=== PATIENT | female | born 2000 | race Caucasian/White ===

== ENCOUNTER → 2021-11-07 14:05 | Outpatient (CLI) | payer OTHER, SELFPAY ==
--- NOTE | ~2021-11-07 | XR_ITS ---
EXAM: XR foot RT min 3V, XR ankle RT min 3V HISTORY: S99.911A - Unspecified injury of right ankle, initial enc... COMPARISON: None available FINDINGS: Normal mineralization. No fracture or dislocation. No lytic or blastic lesion. Joint space s maintained. No erosion or periosteal change. Small volume joint fluid. Soft tissues within normal l imits. IMPRESSION: No acute osseous finding in the right ankle or foot. Small right ankle effusion. Reviewed, dictated and finalized at location K. IMPRESSION: No acute osseous finding in the right ankle or foot. Small right ankle effusion .
== END ==
PROVIDERS: PCP Family Medicine; Visit Provider Nurse Practitioner Family
DX: S99.911A Unspecified injury of right ankle, initial encounter (principal); M25.471 Effusion, right ankle
CPT/HCPCS: 73610; 73630

== ENCOUNTER 2022-09-07 14:59 | Emergency (ER) | payer OTHER, SELFPAY ==
[2022-09-07] VITALS (8 sets, daily range): BP systolic 110–124; BP diastolic 60–82; PULSE 59–75; RESP 12–24; TEMP 36.8; O2SAT 100
--- NOTE | ~2022-09-07 | XR_ITS ---
EXAMINATION: XR chest 2V 09/07/2022 15:50 INDICATION: Chest pain with shortness of breath PROCEDURE: 2 view chest COMPARISON: 10/27/2015 FINDINGS: The lungs are clear. The cardiomediastinal silhouette is within normal limits. There are no pleural effusions. There is no pneumothorax suspected. IMPRESSION: 1: NO ACUTE CARDIOPULMONARY DISEASE. Reviewed, dictated and finalized at location A. 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
--- NOTE | ~2022-09-07 | CT_ITS ---
EXAMINATION: CTA chest PE protocol DATE: 09/07/2022 20:02 [employer] INDICATION: Elevated d-dimer. Shortness of breath. Left-sided chest pain and arm numbness. TECHNIQUE: Computed tomographic angiography (CTA) of the chest was performed with 100 mL Omnipaque-35 0 intravenous contrast. The dose-length product was 212.24 mGy-cm. Maximum intensity projection 3D-re constructions of the aorta and other arteries were constructed by the technologist on a separate work station. Automated exposure control and iterative reconstruction technique were employed. COMPARISON: Chest x-ray dated 09/07/2022. FINDINGS: Heart size normal. Study is technically adequate without evidence for pulmonary embolism. N o significant pleural or pericardial effusion. No thoracic lymphadenopathy. Upper abdomen is unremark able. No endobronchial lesions. No focal airspace consolidation. No pneumothorax. No acute osseous ab normality. IMPRESSION: 1. No acute cardiopulmonary disease. No evidence for pulmonary embolism. Reviewed, dictated and finalized at location A. [employer]
--- NOTE | 2022-09-07 15:18 | ECG_ITS ---
Measurements Intervals [place] Rate: 60 P: 42 MO: 146 QRS: 72 QRSD: 86 T: 49 QT: 397 QTc: 397 Interpretive Statements SINUS RHYTHM BASELINE ARTIFACT POSSIBLE RIGHT VENTRICULAR CONDUCTION DELAY [RSR (QR) IN V1/V2] BORDERLINE ECG NO PREVIOUS ECG AVAILABLE FOR COMPARISON Electronically Signed On 09-08-2022 16:33:08 [employer] by Bernard Segundo M.D.
[2022-09-07 15:34] LABS: Basophils Percent Auto 0.8 % (0.2-1.2); Eosinophils Absolute Auto 0.2 K/mm3 (0-0.3); Eosinophils Percent Auto 3.4 % (0-4.4); Hematocrit 40.6 % (37.0-47.0); Hemoglobin 14.3 g/dL (12.0-15.0); Immature Granulocyte Absolute 0.01 K/mm3 (0.00-0.031); Immature Granulocyte Percent A 0.2 % (0-0.5); Lymphocytes Percent Auto 39.8 % (18.3-44.2); Mean Corpuscular HGB Conc 35.2 g/dl (32-36); Mean Corpuscular Volume 90.8 fl (80-100); Mean Platelet Volume 9.4 fl (7.4-10.4); Monocytes Absolute Auto 0.6 K/mm3 (0.1-0.6); Monocytes Percent Auto 11.2 % (2.6-8.5); Neutrophils Absolute Auto 2.2 K/mm3 (1.3-6.7); Neutrophils Percent Auto 44.6 % (45.5-73.1); Platelet Count Result 295 k/mm3 (150-375); Red Blood Count 4.47 M/mm3 (4.2-5.4)
[2022-09-07 15:49] LABS: INR 0.9; Prothrombin Time 11.8 Seconds (11.1-14.7)
[2022-09-07 15:50] LABS: Alanine Aminotransferase 21 U/L (6-35); Albumin Level 4.9 g/dL (3.5-5.1); Alkaline Phosphatase 79 U/L (38-126); Anion Gap 8 mmol/L (8-16); Aspartate Amino Transferase 34 U/L (14-36); Bilirubin,Total 0.6 mg/dL (0.2-1.3); Blood Urea Nitrogen 11 mg/dL (7-17); Calcium 9.5 mg/dL (8.4-10.2); Carbon Dioxide 24 mmol/L (22-30); Chloride 105 mmol/L (98-107); Estimated CRCL calculation 85 ml/min; Estimated Glomerular Filt Rate > 60; Glucose 90 mg/dL (65-110); Lipase 66 U/L (23-300); Partial Thromboplastin Time 25.3 SECONDS (22.3-36.8); Potassium 3.5 mmol/L (3.4-5.0); Sodium 137 mmol/L (137-145)
[2022-09-07 16:01] LABS: Troponin I < 0.012 ng/mL (0.000-0.034)
[2022-09-07 18:52] LABS: D Dimer 0.79 ug/mL (<0.48)
--- NOTE | 2022-09-07 19:11 | ED.SOB ---
HPI - SOB/Dyspnea General Chief Complaint: Shortness of Breath/Dyspnea Stated Complaint: dyspnea Time Seen by Provider: 09/07/22 17:34 Related Data Allergies Allergy/AdvReac Type Severity Reaction Status Date / Time No Known Allergies Allergy Verified 09/07/22 18:21 [facility] Past Medical History Medical History Eustachian tube dysfunction Family History Family History Grandparent Hypertension Other Family history of malignant neoplasm of breast Social History Social History Smoking status: Never smoker Alcohol intake: current Substance use: never Course Vital Signs Vital signs: Vital Signs Temperature 98.2 F 09/07/22 15:11 Pulse Rate 75 09/07/22 15:11 Respiratory Rate 16 09/07/22 15:11 Blood Pressure 110/60 09/07/22 15:11 Pulse Oximetry 100 09/07/22 15:11 Oxygen Delivery Room Air 09/07/22 15:11 Temperature 98.2 F 09/07/22 15:11 Pulse Rate 60 09/07/22 18:45 Respiratory Rate 12 09/07/22 18:45 Blood Pressure 110/60 09/07/22 15:11 Pulse Oximetry 100 09/07/22 18:45 Oxygen Delivery Room Air 09/07/22 18:19 MDM - SOB/Dyspnea Lab Data 09/07/22 15:27 09/07/22 15:27 Labs: Lab Results 09/07/22 09/07/22 09/07/22 Range/Units 15:27 15:27 15:27 WBC 5.0 (4.5-10.0) K/mm3 RBC 4.47 (4.2-5.4) M/mm3 Hgb 14.3 (12.0-15.0) g/dL Hct 40.6 (37.0-47.0) % MCV 90.8 (80-100) fl MCH 32.0 (26-34) pg MCHC 35.2 (32-36) g/dl RDW 12.0 (11.5-14.5) % Plt Count 295 (150-375) k/mm3 MPV 9.4 (7.4-10.4) fl Immature Gran % (Auto) 0.2 (0-0.5) % Neut % (Auto) 44.6 L (45.5-73.1) % Lymph % (Auto) 39.8 (18.3-44.2) % [place] % (Auto) 11.2 H (2.6-8.5) % Eos % (Auto) 3.4 (0-4.4) % Baso % (Auto) 0.8 (0.2-1.2) % Lymph # (Auto) 2.00 (0.9-3.2) K/mm3 [place] # (Auto) 0.6 (0.1-0.6) K/mm3 Eos # (Auto) 0.2 (0-0.3) K/mm3 Baso # (Auto) 0.0 (0.0-0.1) K/mm3 Abs Immat Gran (auto) 0.01 (0.00-0.031) K/mm3 Absolute Neuts (auto) 2.2 (1.3-6.7) K/mm3 Absolute Nucleated RBC 0.0 (0.0-0.012) K/mm3 Nucleated RBC % 0.0 (0.0-0.2) % PT 11.8 (11.1-14.7) Seconds INR 0.9 APTT 25.3 (22.3-36.8) SECONDS D-Dimer (<0.48) ug/mL Sodium 137 (137-145) mmol/L Potassium 3.5 (3.4-5.0) mmol/L Chloride 105 (98-107) mmol/L Carbon Dioxide 24 (22-30) mmol/L Anion Gap 8 (8-16) mmol/L BUN 11 (7-17) mg/dL Creatinine 0.80 (0.7-1.0) mg/dL Estim Creat Clear Calc 85 ml/min Estimated GFR > 60 (59 - ) Glucose 90 (65-110) mg/dL Calcium 9.5 (8.4-10.2) mg/dL Total Bilirubin 0.6 (0.2-1.3) mg/dL AST 34 (14-36) U/L ALT 21 (6-35) U/L Alkaline Phosphatase 79 (38-126) U/L Troponin I < 0.012 (0.000-0.034) ng/mL Total Protein 8.0 (6.3-8.2) g/dL Albumin 4.9 (3.5-5.1) g/dL Lipase 66 (23-300) U/L 09/07/22 Range/Units 15:27 WBC (4.5-10.0) K/mm3 RBC (4.2-5.4) M/mm3 Hgb (12.0-15.0) g/dL Hct (37.0-47.0) % MCV (80-100) fl MCH (26-34) pg MCHC (32-36) g/dl RDW (11.5-14.5) % Plt Count (150-375) k/mm3 MPV (7.4-10.4) fl Immature Gran % (Auto) (0-0.5) % Neut % (Auto) (45.5-73.1) % Lymph % (Auto) (18.3-44.2) % Hays % (Auto) (2.6-8.5) % Eos % (Auto) (0-4.4) % Baso % (Auto) (0.2-1.2) % Lymph # (Auto) (0.9-3.2) K/mm3 [place] # (Auto) (0.1-0.6) K/mm3 Eos # (Auto) (0-0.3) K/mm3 Baso # (Auto) (0.0-0.1) K/mm3 Abs Immat Gran (auto) (0.00-0.031) K/mm3 Absolute Neuts (auto) (1.3-6.7) K/mm3 Absolute Nucleated RBC (0.0-0.012) K/mm3 Nucleated RBC % (0.0-0.2) % PT (11.1-14.7) Seconds INR APTT (22.3-36.8) SECONDS D-Dimer 0.79 H (<0.48) ug/mL Sodium (137-145) mmo
--- NOTE | 2022-09-07 19:11 | PC.NURSE ---
Patient report given to CELI Bennett. All questions answered and care of patient transferred.
--- NOTE | 2022-09-10 23:55 | ED.SOB ---
HPI - SOB/Dyspnea General Chief Complaint: Shortness of Breath/Dyspnea Stated Complaint: dyspnea Time Seen by Provider: 09/07/22 17:34 History of Present Illness HPI Narrative: Pt is a 22 yo F presenting with chest pain and sob. States she first developed some left sided chest pain earlier today that started to radiate to her left arm. Associated with tingling in her left arm. States she also felt mildly short of breath. No fevers/chills, headache, cough, lightheadedness, abdominal pain, n/v/d, leg swelling. Pt is on control. Related Data Allergies Allergy/AdvReac Type Severity Reaction Status Date / Time No Known Allergies Allergy Verified 09/07/22 18:21 Review of Systems Review of Systems: All systems reviewed & are unremarkable except as noted in HPI and below PMFSH Past Medical History Medical History Eustachian tube dysfunction Family History Family History Grandparent Hypertension Other Family history of malignant neoplasm of breast Social History Social History Smoking status: Never smoker Alcohol intake: current Substance use: never Exam Const: General: healthy appearing, no acute distress and alert HENMT: Head: normal to inspection Throat: posterior oropharynx normal Eyes: Conjunctivae: conjunctivae normal Pupils: Equal, round and reactive pupils present EOM: EOMs intact bilaterally Neck: Neck: normal visual inspection Chest: Chest palpation & inspection: normal inspection of the chest and no tenderness Resp: Effort & Inspection: normal respiratory effort Auscultation: clear to auscultation bilaterally Cardio: Rate: regular rate Rhythm: regular rhythm GI: GI Palp: Yes Soft to palpation and No Tenderness to palpation present (GI) Skin: General skin exam: normal color Neuro: General: patient oriented x3, moves all extremities, no focal motor deficits and CN's II-XI intact bilaterally Extrem: General: normal to inspection Other: no lower extremity edema Psych: Mental Status: mental status grossly normal Course Vital Signs Vital signs: Vital Signs Temperature 98.2 F 09/07/22 15:11 Pulse Rate 75 09/07/22 15:11 Respiratory Rate 16 09/07/22 15:11 Blood Pressure 110/60 09/07/22 15:11 Pulse Oximetry 100 09/07/22 15:11 Oxygen Delivery Room Air 09/07/22 15:11 Temperature 98.2 F 09/07/22 15:11 Pulse Rate 74 09/07/22 20:41 Respiratory Rate 18 09/07/22 20:41 Blood Pressure 124/82 09/07/22 20:41 Pulse Oximetry 100 09/07/22 20:41 Oxygen Delivery Room Air 09/07/22 18:19 MDM - SOB/Dyspnea MDM Narrative Medical decision making narrative: Pt is a 22 yo F presenting with left sided chest pain and shortness of breath. Vitals are wnl. Pt is well appearing, in no acute distress. Exam is unremarkable. Blood work with elevated d-dimer so CTA chest obtained which shows no evidence of PE or other acute abnormality. Trop is negative. EKG per my interpretation shows normal sinus rhythm, normal axis, no ST elevations or depressions. On re-evaluation, pt is resting comfortably. Discussed the reassuring work-up. Advised tylenol/ibuprofen for pain control. Recommended PCP f/u. Appropriate return precautions given. Discharged in stable condition. Differential Diagnosis Differential diagnosis: Likely community acquired pneumonia, pulmonary embolism and other (musculoskeletal pain) Lab Data 09/07/22 15:27 09/07/22 15:27 Labs: Lab Results 09/07/22 09/07/22 09/07/22 Range/Units 15:27 15:27 15:27 WBC 5.0 (4.5-10.0) K/mm3 RBC 4.47 (4.2-5.4) M/mm3 Hgb 14.3 (12.0-15.0) g/dL Hct 40.6 (37.0-47.0) % MCV 90.8 (80-100) fl MCH 32.0 (26-34) pg MCHC 35.2 (32-36) g/dl RDW 12.0 (11.5-14.5) % Plt Count 295 (150-375)
== END 2022-09-07 20:40 | disposition home or self-care (01) ==
PROVIDERS: Emergency Medicine; Emergency Provider Emergency Medicine; PCP Family Medicine
DX: R06.02 Shortness of breath (principal); R07.89 Other chest pain; R94.31 Abnormal electrocardiogram [ECG] [EKG]
CPT/HCPCS: 36415; 71046; 71275; 80053; 81025; 83690; 84484; 85025; 85380; 85610; 85730; 93005; 99284; Q9967

== ENCOUNTER 2023-10-15 22:36 | Emergency (ER) | payer OTHER, SELFPAY ==
--- NOTE | ~2023-10-15 | CT_ITS ---
EXAMINATION: CT abdomen pelvis w con DATE: 10/16/2023 00:13 INDICATION: Right flank pain. TECHNIQUE: Computed tomography (CT) of the abdomen and pelvis was performed with 100 mL Omnipaque 350 intravenous contrast. Automated exposure control and iterative reconstruction technique were employe d. The dose-length product was 910.88 mGy-cm. COMPARISON: Chest CT 09/07/2022 FINDINGS: The visualized portions of the lung bases demonstrate mild atelectasis. No pleural effusion . The heart size is normal. No pericardial effusion. The liver, gallbladder, spleen, pancreas, and ad renal glands are normal. There is mild right hydronephrosis. There is a delayed contrast nephrogram o n the right. There is a 3 mm stone in proximal right ureter. There is a 13 mm cyst in left kidney. Th ere are no dilated loops of bowel. The appendix is normal. There is physiologic fluid in the pelvis. There is a small sliding hiatal hernia. There are no pathologically enlarged lymph nodes. There is th oracolumbar levocurvature. IMPRESSION: 1. 3 mm stone in proximal right ureter with mild right hydronephrosis. 2. Small sliding hiatal hernia. Reviewed, dictated and finalized at location A.
[2023-10-15 22:39] VITALS: BP 113/71; PULSE 71; RESP 22; TEMP 37.1; O2SAT 95
[2023-10-15] MEDS: SODIUM CHLORIDE 0.9% IV 1,000 ML 999 ML IV CONT ×2 (23:10→23:38)
[2023-10-15] MEDS: ONDANSETRON INJ 4 MG/2 ML VIAL IV PUSH (23:10)
--- NOTE | 2023-10-15 23:10 | ED.BACK ---
HPI - Back Pain/Injury General Chief Complaint: Back Pain/Injury Stated Complaint: R sided back pain Time Seen by Provider: 10/15/23 22:39 History of Present Illness HPI Narrative: Patient is a 23-year-old female who presents to the emergency department this evening complaining of right-sided flank pain. Patient was using the restroom when her right flank pain started, patient admits that she also noted that she had blood in her urine. Patient denies any similar symptoms in the past denies any history of kidney stones. Patient is hysterical and initially complaining of weakness all over and refusing to walk. She was wheeled back to her room. Dad is present at bedside with the patient and states that that when she was younger every time she got her menstrual cycle. Patient denies being in her menses at this time. She would act in a similar fashion. Patient admits to nausea and vomiting. She denies any recent falls or trauma. There are no other modifying, alleviating, or precipitating factors at this time. Related Data Allergies Allergy/AdvReac Type Severity Reaction Status Date / Time No Known Allergies Allergy Verified 10/15/23 22:37 Review of Systems Review of Systems: All systems are reviewed and are negative unless stated otherwise in the HPI. [facility] Past Medical History Medical History BMI 25.0-25.9,adult Eustachian tube dysfunction Family History Family History Grandparent Hypertension Other Family history of malignant neoplasm of breast Social History Social History Smoking status: Never smoker Alcohol intake: current Substance use: never Exam Narrative: General: Alert, awake, afebrile, in moderate distress. HEENT: PERRL, no rhinorrhea, no post nasal drip, oropharynx clear. Neck: Trachea midline, no JVD, no lymphadenopathy. Cardiovascular: Regular rate and rhythm, no murmurs, rubs or gallops, no peripheral edema. Respiratory: Clear to auscultation bilaterally, no tachypnea, no wheezing, no rhonchi, no rubs, no respiratory distress. Abdomen: Soft, right CVA tenderness, nondistended, no rebound, no guarding, no peritoneal signs. Musculoskeletal: No joint swelling or deformity, normal muscle tone. Skin: No rashes or petechia, no signs of infection. Psychiatric: Alert and oriented, normal behavior and judgment for situation. Neurological: Alert and oriented to person, place, and time. Follows all commands. No focal deficits, speech is clear and fluent. Course Vital Signs Vital signs: Vital Signs Temperature 98.7 F 10/15/23 22:39 Pulse Rate 71 10/15/23 22:39 Respiratory Rate 22 H 10/15/23 22:39 Blood Pressure 113/71 10/15/23 22:39 Pulse Oximetry 95 10/15/23 22:39 Oxygen Delivery Room Air 10/15/23 22:39 Temperature 98.7 F 10/15/23 22:39 Pulse Rate 62 10/16/23 02:38 Respiratory Rate 16 10/16/23 02:38 Blood Pressure 106/68 10/16/23 02:38 Pulse Oximetry 100 10/16/23 02:38 Oxygen Delivery Room Air 10/15/23 22:39 MDM - Back Pain/Injury MDM Narrative Medical decision making narrative: The patient was evaluated by myself in the emergency department. History is obtained from patient who is an independent historian and physical exam was performed. External medical records were reviewed at this time. IV was established and pertinent tests were ordered. Patient was administered a 1 L IV fluid bolus with normal saline, 4 mg IV morphine and 4 mg of IV Zofran. Patient did continue to have pain after morphine and 15 mg of IV Toradol was administered at this time. Patient was administered 20 mEq of IV potassium at this time and 40 will cover with oral potassium. Laboratory results obtained revealing a potassium level of 3, lactic acid of 3.9 and a magnesium level of 2. Urinalysis revea
[2023-10-15 23:13] LABS: Basophils Absolute Auto 0.1 K/mm3 (0.0-0.1); Basophils Percent Auto 0.7 % (0.2-1.2); Eosinophils Absolute Auto 0.4 K/mm3 (0-0.3); Eosinophils Percent Auto 4.4 % (0-4.4); Hematocrit 39.5 % (37.0-47.0); Hemoglobin 14.1 g/dL (12.0-15.0); Immature Granulocyte Absolute 0.02 K/mm3 (0.00-0.031); Immature Granulocyte Percent A 0.2 % (0-0.5); Lymphocytes Absolute Auto 2.64 K/mm3 (0.9-3.2); Lymphocytes Percent Auto 27.9 % (18.3-44.2); Mean Corpuscular HGB Conc 35.7 g/dl (32-36); Mean Corpuscular Hemoglobin 31.2 pg (26-34); Mean Corpuscular Volume 87.4 fl (80-100); Mean Platelet Volume 9.5 fl (7.4-10.4); Monocytes Percent Auto 10.3 % (2.6-8.5); Neutrophils Absolute Auto 5.3 K/mm3 (1.3-6.7); Neutrophils Percent Auto 56.5 % (45.5-73.1); Platelet Count Result 287 k/mm3 (150-375); Red Blood Count 4.52 M/mm3 (4.2-5.4); Red Cell Distribution Width 11.9 % (11.5-14.5); White Blood Count 9.5 K/mm3 (4.5-10.0)
--- NOTE | 2023-10-15 23:20 | PC.NURSE ---
pt care and report given to CELI Salinas. all questions answered.
[2023-10-15 23:26] LABS: Lactic Acid Reflex 3.9 mmol/L (0.7-2.0)
[2023-10-15 23:32] LABS: Alanine Aminotransferase 70 U/L (6-35); Albumin Level 4.6 g/dL (3.5-5.1); Alkaline Phosphatase 74 U/L (38-126); Anion Gap 14 mmol/L (4-12); Aspartate Amino Transferase 42 U/L (14-36); Bilirubin,Total 0.5 mg/dL (0.2-1.3); Blood Urea Nitrogen 13 mg/dL (7-17); Calcium 9.7 mg/dL (8.4-10.2); Carbon Dioxide 16 mmol/L (22-30); Chloride 105 mmol/L (98-107); Estimated CRCL calculation 95 ml/min; Estimated Glomerular Filt Rate > 60; Glucose 125 mg/dL (65-110); Lipase 71 U/L (23-300); Magnesium 2.1 mg/dL (1.6-2.3); Sodium 135 mmol/L (137-145)
[2023-10-15] MEDS: MORPHINE SULFATE (*CRX) 4 MG/ML INJ IV PUSH (23:38)
[2023-10-15 23:46] VITALS: BP 111/70; PULSE 85; RESP 17; O2SAT 100
[2023-10-15 23:47] VITALS: PULSE 88; RESP 16; O2SAT 100
[2023-10-15 23:48] LABS: SPREG INTERNAL CONTROL Positive; Serum Qual hCG Negative
[2023-10-16 00:04] LABS: Influenza A QL RT-PCR Negative (Negative); Influenza B QL RT-PCR Negative (Negative); RSV RNA, RT-PCR Negative (Negative); SARS-CoV-2 RNA PCR Negative (Negative)
[2023-10-16 00:20] VITALS: PULSE 94; RESP 19; O2SAT 100
[2023-10-16] MEDS: KETOROLAC 15 MG/ML VIAL (*BKC) IV PUSH (00:44)
[2023-10-16 00:45] LABS: Bacteria Urine None Seen /hpf; Non Pathogenic Casts 0-2; RBC Urine >100 /hpf (0-2); Squamous Epithelial Cell Urine None Seen /hpf (Few); WBC Urine 0-5 /hpf (0-3)
[2023-10-16] MEDS: KCL 20 MEQ/SW 100 ML 100 ML 50 MEQ IVPB (00:45)
[2023-10-16 00:47] LABS: Appearance Urine Sl Cloudy (Clear); Bilirubin Urine Negative (Negative); Blood Urine 3+ (Negative); Color Urine Amber (Yellow); Glucose Urine UA Negative (Negative); Ketones Urine 2+ mg/dL (Negative); Leukocyte Esterase Ur Negative LEU/UL (Negative); Nitrate Urine Negative (Negative); Protein Urine Negative (Negative); Specific Grav Ur 1.015 (1.001-1.035); Urobilinogen Urine 0.2 mg/dL (<2.0); pH Urine 8.5 (5.0-9.0)
[2023-10-16 00:48] LABS: Add Urine Microscopic? YES
[2023-10-16] MEDS: SODIUM CHLORIDE 0.9% IV 250 ML (01:08)
[2023-10-16 02:10] LABS: Reflex Lactic Acid Yes or No Add Lactic
[2023-10-16 02:38] VITALS: BP 106/68; PULSE 62; RESP 16; O2SAT 100
== END 2023-10-16 02:41 | disposition home or self-care (01) ==
PROVIDERS: Emergency Provider Emergency Medicine; PCP Family Medicine
DX: N20.0 Calculus of kidney (principal); E87.6 Hypokalemia; Z20.822 Contact with and (suspected) exposure to COVID-19
CPT/HCPCS: 36415; 74177; 80053; 81001; 82248; 83605; 83690; 83735; 84703; 85025; 87637; 96361; 96365; 96366; 96374; 96375; 99284; J1885; J2270; J2405; J3480; J7030; J7050; Q9967

== ENCOUNTER 2023-10-21 10:36 | Outpatient (CLI) | payer OTHER, SELFPAY ==
--- NOTE | ~2023-10-21 | XR_ITS ---
Supine and upright views of the abdomen Clinical history: Renal stone Findings: Bowel gas pattern is nonspecific. No evidence for obstruction or free air. No abnormal mass lesion or calcification is seen. Osseous structures are intact. Impression: No significant abnormality is seen. Reviewed, dictated and finalized at [facility]. Impression: No significant abnormality is seen.
== END 2023-10-21 10:37 ==
PROVIDERS: PCP Advanced Practice Midwife; Visit Provider Physician Assistant
DX: R10.9 Unspecified abdominal pain (principal); N20.0 Calculus of kidney
CPT/HCPCS: 74018

== ENCOUNTER 2023-10-25 09:39 | Outpatient (CLI) | payer OTHER, SELFPAY ==
--- NOTE | ~2023-10-25 | US_ITS ---
US breast BI complete INDICATION: Bilateral breast pain TECHNIQUE: Dedicated complete bilateral breast ultrasound including all 4 quadrants in the subareolar locations COMPARISON: No prior studies for comparison. FINDINGS: The breasts are composed of normal heterogeneous echotexture without focal solid or cystic mass. IMPRESSION: 1: Normal bilateral complete breast ultrasound. BI-RADS CATEGORY 1 - NEGATIVE Reviewed, dictated and finalized at location A.
== END 2023-10-25 09:40 | disposition home or self-care (01) ==
LOC: CHSIMG 09:42
PROVIDERS: PCP Family Medicine; Visit Provider Advanced Practice Midwife
DX: N64.4 Mastodynia (principal)
CPT/HCPCS: 76641